=== PATIENT | female | born 1930 | race Caucasian/White ===

== ENCOUNTER 2016-04-26 05:11 | Emergency (ER) | payer MEDICARE, MEDICAID ==
--- NOTE | 2016-04-26 07:08 | ER Document Report ---
ED General - General Chief Complaint: Arm Pain Stated Complaint: RIGHT ARM PAIN Time seen by provider: 06:45 Mode of Arrival: Medic Information source: Patient, Emergency Med Personnel Notes: 85-year-old female from assisted living with report from EMS personnel of right arm pain. By their report patient also has history of dementia. This examiner she has no complaints now. Patient reports she had some right chest pain 15 minutes prior to examination by this physician. She could not further characterize it or say how long it lasted. She denies fever, chills, nausea, vomiting, cough, shortness of breath, abdominal pain, back pain, or pain elsewhere. Note given her history of dementia think her history is unreliable. Physical Exam: General: Alert, appears well. HEENT: Normocephalic. Atraumatic. PERRLA. Extraocular movements intact. Oropharynx clear. Neck: Supple. Non-tender. Respiratory: No respiratory distress. Clear and equal breath sounds bilaterally. Chest nontender to palpation Cardiovascular: Regular rate and rhythm. Abdominal: Normal Inspection. Soft, non-tender. No distension. Normal Bowel Sounds. Back: Non-tender. No deformity or step off. Extremities: Moves all four extremities. 2+ pulses all extremities no edema no Homans sign bilaterally Good range of motion all joints without apparent discomfort. All extremities nontender to palpation Neurological: Oriented person and place. Spot Cleaner strength 5 out of 5 equal both upper extremities motor function 5 out of 5 equal both lower extremities no cranial nerve deficits appreciated Psychological: Normal affect. Normal Mood. Skin: Warm. Dry. Normal color. TRAVEL OUTSIDE OF THE [place] IN LAST 30 DAYS: No - Related Data Allergies/Adverse Reactions: codeine [Codeine] Allergy (Verified 04/26/16 08:13) lactose [Lactose] Allergy (Verified 04/26/16 08:13) nitrofurantoin macrocrystalline [From Macrodantin] Allergy (Verified 04/26/16 08 :13) Tetanus Vaccines and Toxoid [Tetanus] Allergy (Verified 04/26/16 08:13) Past Medical History - General Cannot obtain history due to: Dementia - Social History Smoking Status: Unknown if Ever Smoked Cigarette use (# per day): No Chew tobacco use (# tins/day): No Frequency of alcohol use: None Drug Abuse: None Family History: Other - Unable to obtain due to dementia - Past Medical History Cardiac Medical History: Reports: Hx Hypercholesterolemia Pulmonary Medical History: Denies: Hx Tuberculosis Psychiatric Medical History: Reports: Hx Depression Past Surgical History: Reports: Hx Hysterectomy - Immunizations Hx Diphtheria, Pertussis, Tetanus Vaccination: Yes Review of Systems - Review of Systems -: Yes ROS unobtainable due to patient's medical condition Physical Exam - Vital signs Vitals: Resp Pulse Ox 14 97 04/26/16 07:31 04/26/16 07:31 Course - Re-evaluation Re-evalutation: 04/26/16 09:59 Patient has remained asymptomatic during her stay in the emergency department. I do not find documentation of atrial flutter in her old records. I discussed case with patient's primary care physician Dr. Hong who also doesn't recall history of atrial flutter. The patient is considerable fall risk due to her dementia I did not believe that anticoagulation candidate. As she is not symptomatic and is rate controlled given her dementia and advanced age I think outpatient workup is reasonable. Dr. Hong asked that I discuss this with cardiology and I discussed it with Dr. Palacios on-call for cardiology. He is discussed case with patient's primary care physician as well and we are in agreement that this can be worked up as an outpatient. Patient will be started on baby aspirin a day - Vital Signs Vital signs: Temp Pulse Resp BP Pulse Ox 97.4 F 16 128/55 H 98 04/26/16 08:09 04/26/16 09:01 04/26/16 09:01 04/26/16 09:01 - Laboratory Result Diagrams: 04/26/16 07:05 04/26/16 07:05 Laboratory results interpreted by me: 04/26/16 04/26/16 07:05 07:05 MCV 99 H RDW 15.8 H Monocytes % 1.3 L Total Protein 5.9 L Albumin 3.3 L - Diagnostic Test Radiology reviewed: Image reviewed, Reports reviewed - EKG Interpretation by Me Additional EKG results interpreted by me: 04/26/16 07:08 EKG reviewed by myself shows atrial flutter ventricular rate 62 no acute changes. Discharge - Discharge Clinical Impression: Atrial flutter Qualifiers: Atrial flutter type: unspecified Qualified Code(s): I48.92 - Unspecified atrial flutter Condition: Stable Disposition: HOME-ASSISTED LIVING Additional Instructions: Atrial Fibrillation Atrial fibrillation is an abnormal heart rhythm, caused by irregular electrical circuits in the upper heart chamber. It can be caused by heart valve disease, hardening of the arteries, or metabolic problems such as thyroid disease, or may occur without a clear cause. Atrial fibrillation may occur only occasionally, or may be chronic. Atrial fibrillation often results in a very fast heart rate, with palpitations, lightheadedness, and shortness of breath. Treatment is to slow the abnormally fast rate, and to convert the rhythm back to normal, if possible. Many patients stay in atrial fibrillation for years without symptoms or complications. Your doctor will decide whether you can be converted back to a normal heart rhythm. Contact the doctor or emergency medical system at once if you develop chest pain, shortness of breath, or severe lightheadedness, or if you develop any disturbance of consciousness, problems with speech, or localized weakness. Take aspirin 81 mg a day Prescriptions: Aspirin [Aspirin 81 mg Chewable Tablet] 81 mg PO DAILY #30 tab.chew Referrals: CONNIE HONG MD [ACTIVE STAFF] - Follow up in 3-5 days LAVINIA PALACIOS MD [ACTIVE STAFF] - Follow up in 3-5 days
[2016-04-26 07:15] LABS: ABSOLUTE EOSINOPHILS # (AUTO) 0.1 10^3/uL (0.0-0.6); ABSOLUTE MONOCYTES (AUTO) 0.1 10^3/uL (0.1-1.4); ABSOLUTE NEUT (AUTO) 2.6 10^3/uL (1.7-8.2); BASOPHILS % (AUTO) 0.5 % (0-2); EOSINOPHILS % (AUTO) 1.6 % (0-6); HEMATOCRIT 38.2 % (36.0-47.0); HEMOGLOBIN 12.4 g/dL (12.0-15.5); LYMPHOCYTES % (AUTO) 42.4 % (13-45); MEAN CORPUSCULAR HGB CONC 32.4 g/dL (32.0-36.0); MEAN CORPUSCULAR VOLUME 99 fl (80-97); MONOCYTES % (AUTO) 1.3 % (3-13); RED BLOOD COUNT 3.87 10^6/uL (3.72-5.28); RED CELL DISTRIBUTION WIDTH 15.8 % (11.5-14.0); SEGMENTED NEUTROPHILS % (AUTO) 54.2 % (42-78); WHITE BLOOD COUNT 4.8 10^3/uL (4.0-10.5)
[2016-04-26 07:28] LABS: ALANINE AMINOTRANSFERASE 21 U/L (9-52); ALBUMIN 3.3 g/dL (3.5-5.0); ALKALINE PHOSPHATASE 68 U/L (38-126); ANION GAP 9 (5-19); ASPARTATE AMINO TRANSFERASE 19 U/L (14-36); BILIRUBIN,TOTAL 0.4 mg/dL (0.2-1.3); BLOOD UREA NITROGEN 14 mg/dL (7-20); CARBON DIOXIDE 27 mmol/L (22-30); CHLORIDE 103 mmol/L (98-107); CREATININE RESULT 0.68 mg/dL (0.52-1.25); GLUCOSE 102 mg/dL (75-110); POTASSIUM 4.7 mmol/L (3.6-5.0); SODIUM 139.4 mmol/L (137-145); TOTAL PROTEIN 5.9 g/dL (6.3-8.2)
--- NOTE | 2016-04-26 07:58 | EKG REPORT ---
SEVERITY:- ABNORMAL ECG - A-FLUTTER W/ PREDOM 4:1 AV BLOCK, A-RATE 245 LEFT AXIS DEVIATION ABNRM R PROG, CONSIDER ASMI OR LEAD PLACEMENT : Confirmed by: Wesley Alfaro MD 26-Apr-2016 07:58:02
[2016-04-26 09:06] VITALS: BP 128/55
[2016-04-26] MEDS ORDERED: ASPIRIN 81 MG TABLET, ENT COATED PO ONE (10:01)
== END 2016-04-26 12:25 | disposition home health service (06) ==
LOC: ER 05:11
DX: I48.92 Unspecified atrial flutter (principal); M79.601 Pain in right arm; F03.90 Unspecified dementia, unspecified severity, without behavioral disturbance, psychotic disturbance, mood disturbance, and anxiety; E78.00 Pure hypercholesterolemia, unspecified; Z90.710 Acquired absence of both cervix and uterus; Z88.6 Allergy status to analgesic agent; Z88.7 Allergy status to serum and vaccine
CPT/HCPCS: 93005; 99284; 36415; 83735; 85025; 80053; 71010; 93010; A9270

== ENCOUNTER 2016-05-02 16:21 | Inpatient (IN) | payer MEDICARE, MEDICAID ==
--- NOTE | 2016-05-02 17:02 | ER Document Report ---
ED Respiratory Problem <LINDA CORREIA - Last Filed: 05/02/16 21:20> - General Cannot obtain history due to: Dementia TRAVEL OUTSIDE OF THE [place] IN LAST 30 DAYS: No - HPI Patient complains to provider of: Cough, Short of breath Onset: Last week Duration: Worse/persistent Short of Breath: Mild Cough: Nonproductive Recently seen / treated by doctor: Yes <MIGUEL ANGEL GRIFFITH - Last Filed: 05/02/16 21:59> - General Chief Complaint: Cough Stated Complaint: GENERAL WEAKNESS Notes: Patient is an 85 year old female from assisted living that presents to the emergency department today with complaints of a cough and nasal congestion x1 week. Patient was seen here on 04/26/16 and was found to have Atrial Flutter which was a new diagnosis. Patient was not started on anticoagulation therapy due to being a fall risk. EMS reports a room air oxygen saturation of 88%, on the patient's room air oxygen saturation was 98% on room air. History is limited secondary to the patient's dementia. (MIGUEL ANGEL GRIFFITH) - Related Data Allergies/Adverse Reactions: codeine [Codeine] Allergy (Verified 04/26/16 08:13) lactose [Lactose] Allergy (Verified 04/26/16 08:13) nitrofurantoin macrocrystalline [From Macrodantin] Allergy (Verified 04/26/16 08 :13) Tetanus Vaccines and Toxoid [Tetanus] Allergy (Verified 04/26/16 08:13) Past Medical History - Social History Smoking Status: Former Smoker Cigarette use (# per day): No - quit in 1968 <LINDA CORREIA - Last Filed: 05/02/16 21:20> - Social History Smoking Status: Former Smoker Cigarette use (# per day): No Family History: Other - Unable to obtain due to dementia - Past Medical History Cardiac Medical History: Reports: Hx Hypercholesterolemia Psychiatric Medical History: Reports: Hx Depression Past Surgical History: Reports: Hx Hysterectomy - Immunizations Hx Diphtheria, Pertussis, Tetanus Vaccination: Yes <MIGUEL ANGEL GRIFFITH - Last Filed: 05/02/16 21:59> Review of Systems - Review of Systems -: Yes ROS unobtainable due to patient's medical condition - limited secondary to dementia EENT: See HPI, Nose congestion Respiratory: See HPI, Cough, Short of breath -: Yes All other systems reviewed and negative <MIGUEL ANGEL GRIFFITH - Last Filed: 05/02/16 21:59> Physical Exam - General General appearance: Appears well In distress: Mild - HEENT Head: Normocephalic, Atraumatic Eyes: Normal Extraocular movements intact: Yes - Respiratory Respiratory status: No respiratory distress Chest status: Nontender Breath sounds: Rhonchi, Wheezing - Cardiovascular Rhythm: Irregularly irregular - atrial flutter - Abdominal Inspection: Normal Distension: No distension Bowel sounds: Normal - Extremities General upper extremity: Normal inspection, Nontender. No: Edema, Normal ROM General lower extremity: Normal inspection, Nontender. No: Edema, Normal ROM - Neurological Cognition: Other - pleasantly demented at baseline Speech: Normal - Psychological Associated symptoms: Normal affect, Normal mood - Skin Skin Temperature: Warm Skin Moisture: Dry Skin Color: Normal <MIGUEL ANGEL GRIFFITH - Last Filed: 05/02/16 21:59> - Vital signs Vitals: Resp 22 H 05/02/16 16:35 (LINDA CORREIA) (MIGUEL ANGEL GRIFFITH) Course - Laboratory Result Diagrams: 05/02/16 18:17 05/02/16 18:17 - Diagnostic Test Radiology reviewed: Image reviewed, Reports reviewed - Chest x-ray shows mild heart enlargement, interstitial vascular prominence. - EKG Interpretation by Me EKG shows normal: [place], Intervals, ST-T Waves. abnormal: QRS Complexes Rate: Normal - 77 Rhythm: A.Flutter [place]/QRS: LAHB/LAFB - Consults Dr. Sexton Time consulted: 21:15 Consulted provider: will come to ER <LINDA CORREIA - Last Filed: 05/02/16 21:20> - Laboratory Result Diagrams: 05/02/16 18:17 05/02/16 18:17 <MIGUEL ANGEL GRIFFITH - Last Filed: 05/02/16 21:59> - Vital Signs Vital signs: Temp Pulse Resp BP Pulse Ox 98.6 F 64 20 153/54 H 95 05/02/16 21:50 05/02/16 16:36 05/02/16 21:41 05/02/16 21:41 05/02/16 21:41 (LINDA CORREIA) (MIGUE LANGEL GRIFFITH) - Laboratory Laboratory results interpreted by me: 05/02/16 05/02/16 05/02/16 18:17 18:17 18:17 RBC 3.68 L Hgb 11.8 L MCV 100 H RDW 15.7 H Monocytes % 1.0 L Creatine Kinase 449 H CK-MB (CK-2) 6.41 H NT-Pro-B Natriuret Pep 05/02/16 18:17 RBC Hgb MCV RDW Monocytes % Creatine Kinase CK-MB (CK-2) NT-Pro-B Natriuret Pep 821 H (LINDA CORREIA) Discharge - Discharge Admitting Provider: Hospitalist Unit Admitted: Telemetry <LINDA CORREIA - Last Filed: 05/02/16 21:20> <MIGUEL ANGEL GRIFFITH - Last Filed: 05/02/16 21:59> - Discharge Clinical Impression: Bronchitis, acute, with bronchospasm, Hypoxemia, Acute exacerbation of chronic obstructive pulmonary disease Dementia Qualifiers: Dementia type: Alzheimer's disease Alzheimer's disease onset: unspecified onset Dementia behavioral disturbance: without behavioral disturbance Qualified Code(s): G30.9 - Alzheimer's disease, unspecified Atrial flutter Qualifiers: Atrial flutter type: unspecified Qualified Code(s): I48.92 - Unspecified atrial flutter Condition: Stable Disposition: ADMITTED INPATIENT Scribe Attestation: 05/02/16 21:20 I personally performed the services described in the documentation, reviewed and edited the documentation which was dictated to the scribe in my presence, and it accurately records my words and actions. (LINDA CORREIA) Scribe Documentation - Scribe Written by Yo:: Yo Galindo, 1816 05/02/16 acting as scribe for :: Breanne <MIGUEL ANGEL GRIFFITH - Last Filed: 05/02/16 21:59>
[2016-05-02] MEDS ORDERED: IPRATROPIUM/ALBUTEROL 0.5-2.5 MG/3 ML AMPUL NEB ONE (17:41)
[2016-05-02] MEDS ORDERED: ALBUTEROL SULFATE 0.083% NEB 2.5 MG/3 ML AMPUL NEB ONE ×2 (18:17→20:26)
[2016-05-02 18:39] LABS: ABSOLUTE MONOCYTES (AUTO) 0.1 10^3/uL (0.1-1.4); ABSOLUTE NEUT (AUTO) 3.7 10^3/uL (1.7-8.2); BASOPHILS % (AUTO) 0.3 % (0-2); EOSINOPHILS % (AUTO) 0.1 % (0-6); HEMATOCRIT 36.7 % (36.0-47.0); HEMOGLOBIN 11.8 g/dL (12.0-15.5); HGB HCT DIFFERENCE -1.3; LYMPHOCYTES % (AUTO) 34.7 % (13-45); MEAN CORPUSCULAR HEMOGLOBIN 32.2 pg (27.0-33.4); MEAN CORPUSCULAR HGB CONC 32.3 g/dL (32.0-36.0); MEAN CORPUSCULAR VOLUME 100 fl (80-97); RED BLOOD COUNT 3.68 10^6/uL (3.72-5.28); RED CELL DISTRIBUTION WIDTH 15.7 % (11.5-14.0); SEGMENTED NEUTROPHILS % (AUTO) 63.9 % (42-78); WHITE BLOOD COUNT 5.9 10^3/uL (4.0-10.5)
[2016-05-02 19:05] LABS: ALANINE AMINOTRANSFERASE 30 U/L (9-52); ALBUMIN 3.9 g/dL (3.5-5.0); ALKALINE PHOSPHATASE 66 U/L (38-126); ANION GAP 9 (5-19); ASPARTATE AMINO TRANSFERASE 35 U/L (14-36); BILIRUBIN,TOTAL 0.7 mg/dL (0.2-1.3); BLOOD UREA NITROGEN 18 mg/dL (7-20); CALCIUM 9.3 mg/dL (8.4-10.2); CARBON DIOXIDE 27 mmol/L (22-30); CHLORIDE 102 mmol/L (98-107); CREATINE KINASE 449 U/L (30-135); CREATININE RESULT 0.69 mg/dL (0.52-1.25); GLUCOSE 105 mg/dL (75-110); POTASSIUM 3.9 mmol/L (3.6-5.0); SODIUM 137.7 mmol/L (137-145); TOTAL PROTEIN 6.5 g/dL (6.3-8.2)
[2016-05-02 19:13] LABS: CREATINE KINASE MB 6.41 ng/mL (<4.55); TROPONIN I 0.03 ng/mL
[2016-05-02] MEDS ORDERED: METHYLPREDNISOLONE INJ 125 MG/2 ML SDV IV ONE (20:26)
[2016-05-02] MEDS ORDERED: DILTIAZEM HCL 60 MG TABLET PO ONE (21:30)
[2016-05-02] MEDS ORDERED: IPRATROPIUM BROMIDE 0.02% NEB 0.5 MG/2.5 ML AMPUL NEB ONE (23:00)
[2016-05-02] MEDS ORDERED: LEVALBUTEROL HCL NEB 1.25 MG/3 ML AMPUL NEB ONE (23:00)
[2016-05-02] MEDS: LEVOFLOXACIN 750 MG/D5W RTU 750 MG/150 ML RTUPB IV SCH (23:17)
[2016-05-02] MEDS: HEPARIN SOD (PORCINE) 5,000 UNIT/ML 1 ML SYRINGE SUBCUT SCH (23:18)
[2016-05-02 23:47] LABS: CREATINE KINASE MB 4.92 ng/mL (<4.55); TROPONIN I 0.024 ng/mL
--- NOTE | 2016-05-02 23:55 | EKG REPORT ---
SEVERITY:- ABNORMAL ECG - ATRIAL FLUTTER, A-RATE 254 LEFT ANTERIOR FASCICULAR BLOCK : Confirmed by: Isael Fu 02-May-2016 23:54:42
[2016-05-03] MEDS: LEVALBUTEROL HCL NEB 1.25 MG/3 ML AMPUL NEB SCH ×4 (02:13→22:25)
[2016-05-03] MEDS: IPRATROPIUM BROMIDE 0.02% NEB 0.5 MG/2.5 ML AMPUL NEB SCH ×2 (02:13→08:11)
[2016-05-03] MEDS ORDERED: INFLUENZA ADLT QUAD (36MOS+) 2016-17 VAC 0.5 ML SYR IM PRN (02:35)
--- NOTE | 2016-05-03 04:20 | PDOC H&P ---
History of Present Illness Admission Date/PCP: 05/02/16 21:41 CONNIE HONG MD Patient complains of: Shortness of breath History of Present Illness: TEJA SINGH is a 85 year old female residing at assisted living with a past medical history of atrial flutter no chronic anticoagulation secondary to fall risk, dementia, dyslipidemia and hypothyroidism. Who had been her usual state of health until approximately 4 days ago noting shortness of breath and a nonproductive cough, without fever and brought to the emergency room for evaluation. She's found to have a pulse oximetry in the mid 80s and chest x- ray showing mild pulmonology congestion but a BNP of only 800 no leukocytosis. She receives several albuterol Atrovent treatments without significant improvement and referred to the hospitalist for admission. Patient is a poor historian and unable to provide history. Past Medical History Cardiac Medical History: Reports: Atrial Fibrillation, Hyperlipidema Pulmonary Medical History: Denies: Tuberculosis Endocrine Medical History: Reports: Hypothyroidism Psychiatric Medical History: Reports: Dementia, Depression Hematology: Reports: Anemia Denies: Sickle Cell Disease Past Surgical History Past Surgical History: Reports: Hysterectomy Denies: Amputation Social History Information Source: [facility] Records Lives with: [facility] Smoking Status: Former Smoker Frequency of Alcohol Use: None Hx Recreational Drug Use: No Drugs: None Hx Prescription Drug Abuse: No - Advance Directive Resuscitation Status: Full Code Family History Family History: Other - Unable to obtain due to dementia Parental Family History Reviewed: Yes - unable to obtain given dementia Children Family History Reviewed: Yes Sibling(s) Family History Reviewed.: Yes Medication/Allergy Home Medications: Fluticasone Propionate [Flonase] 16 gm NS DAILY 01/02/12 Loratadine [Claritin 10 mg Tablet] 10 mg PO DAILY 01/02/12 Olanzapine [Zyprexa Zydis 5 mg Odt Tablet] 2.5 mg PO DAILY 01/02/12 Dane-3 Acid Ethyl Esters [Lovaza 1 gm Capsule] 2 gm PO BID 01/02/12 Simvastatin 20 mg PO DAILY 01/02/12 Bisacodyl [Dulcolax 5 mg Tablet] 10 mg PO PRN PRN 06/27/13 Cyanocobalamin (Vitamin B-12) [Vitamin B-12] 100 mcg PO DAILY 06/27/13 Duloxetine HCl [Cymbalta 20 mg Capsule.dr] 30 mg PO DAILY 06/27/13 Fiber [Fiber Choice] 1 each PO DAILY 06/27/13 Lactulose [Enulose 10 gm/15 mL Oral Solution] 20 gm PO DAILY 06/27/13 Loperamide HCl/Simethicone [Imodium Advanced Tab Chew] 1 each PO Q1H PRN Lorazepam 0.5 mg PO PRN PRN 06/27/13 Multivitamin [Daily Vitamin] 1 each PO DAILY 06/27/13 Acetaminophen [Tylenol 325 mg Tablet] 650 mg PO Q4 PRN 09/28/13 Beta-Carotene(A) W-C & E/Zn/Cu [Savision Tablet] 2 tab PO DAILY 09/28/13 Bimatoprost [Lumigan] 1 drop OP DAILY 09/28/13 Hydrocortisone Acetate 25 mg PO BID PRN 09/28/13 Pramipexole Di-HCl [Mirapex 0.5 mg Tablet] 0.05 mg PO TID 09/28/13 Timolol Maleate [Timoptic 0.25% Oph Soln 5 ml] 1 drop OD DAILY 09/28/13 Aspirin [Aspirin 81 mg Chewable Tablet] 81 mg PO DAILY #30 tab.chew 04/26/16 Dextran 70/Hypromellose/Pf [Artificial Tears Drops] 1 each OU QID 05/03/16 Levothyroxine Sodium [Synthroid 0.025 mg Tablet] 25 mcg PO DAILY 05/03/16 Memantine HCl [Namenda Xr] 28 mg PO DAILY 05/03/16 Omeprazole Magnesium [Prilosec Otc] 40 mg PO DAILY 05/03/16 Allergies/Adverse Reactions: codeine [Codeine] Allergy (Verified 04/26/16 08:13) lactose [Lactose] Allergy (Verified 04/26/16 08:13) nitrofurantoin macrocrystalline [From Macrodantin] Allergy (Verified 04/26/16 08 :13) Tetanus Vaccines and Toxoid [Tetanus] Allergy (Verified 04/26/16 08:13) Review of Systems Constitutional: ABSENT: chills, fever(s), headache(s), weight gain, weight loss Eyes: ABSENT: visual disturbances Ears: ABSENT: hearing changes Cardiovascular: ABSENT: chest pain, dyspnea on exertion, edema, orthropnea, palpitations Respiratory: ABSENT: cough, hemoptysis Gastrointestinal: ABSENT: abdominal pain, constipation, diarrhea, hematemesis, hematochezia, nausea, vomiting Genitourinary: ABSENT: dysuria, hematuria Musculoskeletal: ABSENT: joint swelling Integumentary: ABSENT: rash, wounds Neurological: ABSENT: abnormal gait, abnormal speech, confusion, dizziness, focal weakness, syncope Psychiatric: ABSENT: anxiety, depression, homidical ideation, suicidal ideation Endocrine: ABSENT: cold intolerance, heat intolerance, polydipsia, polyuria Hematologic/Lymphatic: ABSENT: easy bleeding, easy bruising Physical Exam Vital Signs: Temp Pulse Resp BP Pulse Ox 97.2 F 56 L 19 107/42 L 96 05/03/16 03:58 05/03/16 03:58 05/03/16 03:58 05/03/16 03:58 05/03/16 03:58 Intake & Output 05/01/16 05/02/16 05/03/16 11:59 11:59 11:59 Weight 76.5 kg General appearance: PRESENT: mild distress, well-nourished Head exam: PRESENT: atraumatic, normocephalic Eye exam: PRESENT: conjunctiva pink, EOMI, PERRLA. ABSENT: scleral icterus Ear exam: PRESENT: normal external ear exam Mouth exam: PRESENT: moist, tongue midline Neck exam: ABSENT: carotid bruit, JVD, lymphadenopathy, thyromegaly Respiratory exam: PRESENT: accessory muscle use, crackles, rales, symmetrical, tachypnea. ABSENT: chest wall tenderness, stridor Cardiovascular exam: PRESENT: RRR. ABSENT: diastolic murmur, rubs, systolic murmur Pulses: PRESENT: normal dorsalis pedis pul Vascular exam: PRESENT: normal capillary refill GI/Abdominal exam: PRESENT: normal bowel sounds, soft. ABSENT: distended, guarding, mass, organolmegaly, rebound, tenderness Rectal exam: PRESENT: deferred Extremities exam: PRESENT: full ROM. ABSENT: calf tenderness, clubbing, pedal edema Neurological exam: PRESENT: awake, CN II-XII grossly intact. ABSENT: motor sensory deficit Psychiatric exam: PRESENT: flat affect Skin exam: PRESENT: dry, intact, warm. ABSENT: cyanosis, rash Results Laboratory Results: 05/02/16 05/02/16 22:34 22:34 Creatine Kinase 426 H CK-MB (CK-2) 4.92 H Troponin I 0.024 Impressions: Chest X-Ray 05/02/16 17:41 IMPRESSION: Prominent heart. Some interstitial/vascular prominence. Assessment & Plan - Diagnosis (1) Acute exacerbation of chronic obstructive pulmonary disease Is this a current diagnosis for this admission?: YesPlan: Admission to monitored floor empiric antibiotics albuterol and Atrovent nebulizer ABG if difficult to arouse (2) Atrial flutter Qualifiers: Atrial flutter type: unspecified Qualified Code(s): I48.92 - Unspecified atrial flutter Is this a current diagnosis for this admission?: YesPlan: Rate controlled without meds without anti-coagulation. Continue cardiac monitoring (3) Bronchitis, acute, with bronchospasm Is this a current diagnosis for this admission?: YesPlan: Empiric antibiotics albuterol Atrovent nebulizer, I doubt this alone explains her hypoxia, a d-dimer is elevated a CTA is pending (4) Hypoxemia Plan: Please see above in addition to supplemental oxygen, (5) Dementia Qualifiers: Dementia type: Alzheimer's disease Alzheimer's disease onset: unspecified onset Dementia behavioral disturbance: without behavioral disturbance Qualified Code(s): G30.9 - Alzheimer's disease, unspecified; F02.80 - Dementia in other diseases classified elsewhere without behavioral disturbance Is this a current diagnosis for this admission?: YesPlan: Continue outpatient medication regiment and supportive measures consider re- evaluation of CODE STATUS - Time Time Spent: 50 to 70 Minutes
[2016-05-03] MEDS: HEPARIN SOD (PORCINE) 5,000 UNIT/ML 1 ML SYRINGE SUBCUT SCH ×3 (06:18→21:55)
[2016-05-03 06:30] LABS: ABSOLUTE LYMPHOCYTES (AUTO) 1.2 10^3/uL (0.5-4.7); ABSOLUTE MONOCYTES (AUTO) 0.1 10^3/uL (0.1-1.4); ABSOLUTE NEUT (AUTO) 3.6 10^3/uL (1.7-8.2); BASOPHILS % (AUTO) 0.2 % (0-2); HEMATOCRIT 34.6 % (36.0-47.0); HEMOGLOBIN 11.6 g/dL (12.0-15.5); HGB HCT DIFFERENCE 0.2; LYMPHOCYTES % (AUTO) 23.9 % (13-45); MEAN CORPUSCULAR HEMOGLOBIN 32.6 pg (27.0-33.4); MEAN CORPUSCULAR HGB CONC 33.7 g/dL (32.0-36.0); MEAN CORPUSCULAR VOLUME 97 fl (80-97); MONOCYTES % (AUTO) 1.1 % (3-13); RED BLOOD COUNT 3.57 10^6/uL (3.72-5.28); RED CELL DISTRIBUTION WIDTH 15.5 % (11.5-14.0); SEGMENTED NEUTROPHILS % (AUTO) 74.8 % (42-78); WHITE BLOOD COUNT 4.9 10^3/uL (4.0-10.5)
[2016-05-03 06:50] LABS: ANION GAP 12 (5-19); BLOOD UREA NITROGEN 23 mg/dL (7-20); CARBON DIOXIDE 23 mmol/L (22-30); CHLORIDE 103 mmol/L (98-107); CREATINE KINASE 333 U/L (30-135); CREATININE RESULT 0.77 mg/dL (0.52-1.25); GLUCOSE 183 mg/dL (75-110); SODIUM 138.2 mmol/L (137-145)
[2016-05-03 06:54] LABS: CREATINE KINASE MB 6.03 ng/mL (<4.55); TROPONIN I 0.021 ng/mL
[2016-05-03] MEDS ORDERED: LANSOPRAZOLE 30 MG TAB.RAP.DR PO SCH (08:00)
[2016-05-03] MEDS: ASPIRIN 81 MG TABLET, CHEWABLE PO SCH (09:15)
[2016-05-03] MEDS: LORAZEPAM 0.5 MG TABLET PO SCH ×2 (09:15→17:54)
[2016-05-03] MEDS ORDERED: (PENDING PHARMACY ID) (Simvastatin [Simvastatin] 20 MG) PO SCH (10:00)
[2016-05-03] MEDS ORDERED: (PENDING PHARMACY ID) (Memantine Hcl [Namenda Xr] 28 MG) PO SCH (10:00)
[2016-05-03] MEDS ORDERED: DULOXETINE HCL 20 MG CAPSULE.DR PO SCH (10:00)
[2016-05-03] MEDS ORDERED: MEMANTINE HCL 10 MG TABLET PO SCH (10:00)
[2016-05-03] MEDS ORDERED: LACTULOSE SYRUP 20 GM/30 ML UDCUP PO SCH (10:00)
[2016-05-03] MEDS ORDERED: OLANZAPINE 5 MG TAB.RAPDIS PO SCH (10:00)
[2016-05-03] MEDS ORDERED: (PENDING PHARMACY ID) (Omeprazole Magnesium [Prilosec Otc] 40 MG) PO SCH (10:00)
[2016-05-03] MEDS ORDERED: ACETAMINOPHEN 325 MG TABLET PO PRN (10:26)
[2016-05-03] MEDS ORDERED: HYDROCORTISONE ACETATE 25 MG SUPP.RECT PR PRN (10:26)
[2016-05-03] MEDS: FLUTICASONE NASAL SPRAY 50 MCG/SPRY 120 SPRAY/16 GM NAREB SCH (10:27)
[2016-05-03] MEDS ORDERED: LORATADINE 10 MG TABLET PO SCH (10:30)
[2016-05-03] MEDS ORDERED: LEVOTHYROXINE SODIUM 0.025 MG TABLET PO SCH (10:30)
[2016-05-03] MEDS: DULOXETINE HCL 30 MG CAPSULE.DR PO SCH (10:32)
[2016-05-03] MEDS ORDERED: LEVALBUTEROL HCL NEB 0.63 MG/3 ML AMPUL NEB PRN (10:36)
[2016-05-03] MEDS ORDERED: MEMANTINE HCL 10 MG TABLET PO ONE (12:00)
[2016-05-03] MEDS: BIMATOPROST 0.01% OPH SOLN 2.5 ML/BOTTLE OP SCH (12:53)
[2016-05-03] MEDS: LORATADINE 10 MG TABLET PO SCH (12:54)
[2016-05-03] MEDS: LEVOTHYROXINE SODIUM 0.025 MG TABLET PO SCH (12:54)
[2016-05-03] MEDS: PRAMIPEXOLE DI-HCL 0.5 MG TABLET PO SCH ×2 (13:56→17:53)
--- NOTE | 2016-05-03 13:57 | Physician Advisory Note ---
Physician Advisor ProgressNote .: Pursuant to the plan for [facility], I have reviewed the medical record for this patient. Physician Advisor Statement: Possible documentation opportunities if attending agrees: 1.~ "Medical Necessity": please document explicitly how pt is still different than her baseline, why she still needs to be in hospital for another midnight. Feel free to include points below which you agree apply to this pt. 2.~ "COPD with moderate emphysema", "possible chronic interstitial lung dz" [ per CT] 3. ?? - "Ac Hypoxemic Resp Failure" - Pt had hypoxemia initially for EMS, but whether or not pt having resp distress at that point is not documented in hospital record. ED nurse initial assessment states "Breathing is labored", Effort = "SOB", RR22, but with O2 sat 93% on RA at that time. ED provider stated "mild distress" but "no resp distress" w/her rhonchi/wheezing. H&P states "mild distress", "accessory muscle use", & "tachypnea"; at time of H&P pt 's O2 sats 95-96% on 2L O2 (P/F ratio 286-321, equiv to O2 sat 91+% on RA). Attending, if you feel pt truly had "Ac Hypoxemic Resp Failure" initially, please document this dx with all the findings you used to make your dx. 4. "chronic anemia due to " [nutritional B12 defic? nutritional Fe defic ? chr blood loss Fe defic? nutritional folate defic? ...] As always, if concerned about any unstable VS or abnormal labs,~ please comment on them & note what doing about them, & ~ please document each day the potential clinical problems you are concerned could occur if pt not kept in hospital for tx at this time. Status:~ COPD exacerbation pts typically should come in as Outpt Obs, then next day be changed to Inpt or d/c'd, depending on response. HOwever, this pt already spent 1MN in ED care, & at time of H&P this AM she was expected to require at least a 2nd MN. 85yo with COPD, dementia, A flutter, falls risk presented about 17:00 on with cough/SOB, with initial sat 88% for EMS when her baseline O2 sat is documented to be 98% per ED dr. She was using accessory muscles to breathe, with some distress. She did not have tachycardia. BNP 821, CK 425 (may indicate she had been working hard to breathe for a while prior to arrival), WBC 5.9, Hgb 11.8 (some anemia further increases need for good oxygenation by lungs; Hgb was 12.4 on 04/26/16 & 14's in late 2015). D- dimer 1.99. CXR = mild cardiomegaly, interstitial vasc prominence. CT = mod changes c/w chr ILD or nonspecific pneumonitis, (+)mod emphysema, small BLL fibrosis, mod cardiomegaly, mod mediastinal lymphadenopathy up to 2.1cm. -> ED gave O2, 3 nebs + IV Solumedrol. Attending ordered IV Levaquin, O2, Incentive spirometry, sputum cx, tele monitoring, NOW neb, I/O's, CT-A due to concern about hypoxemia + elevated D- dimer. She has been intermittently tachypneic, as high as RR 25 & 37 on 05/02 PM. On AM, pt bradycardic w/HR 45-55, BP 100/45, RR finally down to 16-19 range. BUN worse, up from 18 to 23, with Cr 0.77, & attending will want to follow up her renal function after CT-A given risk for further kidney decompensation. CK down to 333 but still elevated. Trop I's 0.030, 0.024, 0.021 with no prior levels to compare. This AM, nursing assessment indicates continued wheezes, rhonchi, coarse breath sounds. This AM, attending ordering Xopanex nebs q6h [place] + prn, feels the need for continued hospital care & monitoring for this pt. Nebs & IV steroids can cause further worsening in cardiac function, and this pt has additional risks to cardiac function from hypoxemia. Pt has not yet shown 24 hrs of stable vital signs. Continued tx in inpatient hospital setting medically reasonable & necessary to protect pt's health, safety, & medical condition. Appropriate for Inpt status. Thanks for your help with documentation accuracy/specificity improvement! Lisa Escobar MD [facility] Physician Advisor, Fellow of Hospital Medicine
[2016-05-03] MEDS: POLYVINYL ALCOHOL 1.4% OPH SOLN 15 ML OU SCH ×3 (13:58→21:56)
[2016-05-03] MEDS ORDERED: DEXTRAN OU SCH (14:00)
[2016-05-03] MEDS ORDERED: HYPROMELLOSE OU SCH (14:00)
--- NOTE | 2016-05-03 15:07 | PDOC PROGRESS REPORT ---
Subjective Progress Note for:: 05/03/16 Subjective:: The patient was seen earlier today on rounds. The patient denies any nausea, vomiting, diarrhea, shortness of breath, dizziness, chest pain, heart palpitations, fevers, or chills. I'm uncertain of the reliability of the patient's history. The patient has remained afebrile. Blood pressures have been in a good range. When prompted the patient voices no other concerns at this time. Review of systems: The rest of the review of systems is negative. Physical Exam Vital Signs: Temp Pulse Resp BP Pulse Ox 97.4 F 68 16 121/51 L 94 05/03/16 12:02 05/03/16 13:40 05/03/16 13:40 05/03/16 12:02 05/03/16 13:40 Intake & Output 05/01/16 05/02/16 05/03/16 23:59 23:59 23:59 Intake Total 130 Output Total 0 Balance 130 Weight 76.5 kg General appearance: PRESENT: no acute distress, well-developed, well-nourished Head exam: PRESENT: atraumatic, normocephalic Eye exam: PRESENT: conjunctiva pink, EOMI, PERRLA. ABSENT: scleral icterus Ear exam: PRESENT: normal external ear exam Mouth exam: PRESENT: moist, tongue midline Neck exam: ABSENT: carotid bruit, JVD, lymphadenopathy, thyromegaly Respiratory exam: PRESENT: symmetrical, unlabored, wheezes. ABSENT: rales, rhonchi, tachypnea Cardiovascular exam: PRESENT: RRR. ABSENT: diastolic murmur, rubs, systolic murmur Pulses: PRESENT: normal dorsalis pedis pul Vascular exam: PRESENT: normal capillary refill GI/Abdominal exam: PRESENT: normal bowel sounds, soft. ABSENT: distended, guarding, mass, organolmegaly, rebound, tenderness Rectal exam: PRESENT: deferred Extremities exam: PRESENT: full ROM. ABSENT: calf tenderness, clubbing, pedal edema Neurological exam: PRESENT: alert, awake, oriented to person. ABSENT: motor sensory deficit Psychiatric exam: PRESENT: appropriate affect, normal mood, other - Demented. ABSENT: homicidal ideation, suicidal ideation Skin exam: PRESENT: dry, intact, warm. ABSENT: cyanosis, rash Results Laboratory Results: 05/03/16 05:34 05/03/16 05:34 05/03/16 05/03/16 05:34 05:34 WBC 4.9 RBC 3.57 L Hgb 11.6 L Hct 34.6 L MCV 97 MCH 32.6 MCHC 33.7 RDW 15.5 H Plt Count 185 Seg Neutrophils % 74.8 Lymphocytes % 23.9 Monocytes % 1.1 L Eosinophils % 0.0 Basophils % 0.2 Absolute Neutrophils 3.6 Absolute Lymphocytes 1.2 Absolute Monocytes 0.1 Absolute Eosinophils 0.0 Absolute Basophils 0.0 Sodium 138.2 Potassium 4.0 Chloride 103 Carbon Dioxide 23 Anion Gap 12 BUN 23 H Creatinine 0.77 Est GFR ( Amer) > 60 Est GFR (Non-Af Amer) > 60 Glucose 183 H Calcium 9.0 05/02/16 05/02/16 05/03/16 22:34 22:34 05:34 Creatine Kinase 426 H 333 H CK-MB (CK-2) 4.92 H Troponin I 0.024 05/03/16 05:34 Creatine Kinase CK-MB (CK-2) 6.03 H Troponin I 0.021 Impressions: Chest X-Ray 05/02/16 17:41 IMPRESSION: Prominent heart. Some interstitial/vascular prominence. Chest/Abdomen CTA 05/03/16 00:00 IMPRESSION: Moderate mediastinal lymphadenopathy and reticulonodular intersitium of the right upper lobe may indicate chronic interstitial lung disease or nonspecific pneumonitis. Recommend contrast CT surveillance in 3 months. Assessment & Plan - Diagnosis (1) Bronchitis, acute, with bronchospasm Is this a current diagnosis for this admission?: YesPlan: Continue nebs and steroids. (2) Acute exacerbation of chronic obstructive pulmonary disease Is this a current diagnosis for this admission?: Yes (3) Atrial flutter Qualifiers: Atrial flutter type: unspecified Qualified Code(s): I48.92 - Unspecified atrial flutter Is this a current diagnosis for this admission?: YesPlan: The patient is not anticoagulated given her fall risk. He has not been anticoagulated throughout this diagnosis. (4) Hypothyroid Is this a current diagnosis for this admission?: Yes (5) Dementia Qualifiers: Dementia type: Alzheimer's disease Alzheimer's disease onset: unspecified onset Dementia behavioral disturbance: without behavioral disturbance Qualified Code(s): G30.9 - Alzheimer's disease, unspecified; F02.80 - Dementia in other diseases classified elsewhere without behavioral disturbance Is this a current diagnosis for this admission?: Yes - Time Time Spent with patient: on this visit including assessment, plan, physical examination, and patient education is 35 minutes. Time Spent with patient: 35 or more minutes Medications reviewed and adjusted accordingly: Yes Anticipated discharge: Other - Assisted living Within: within 48 hours Disposition: The patient is a full code. Pending patient's symptomatology and diagnostic findings will reevaluate in the a.m.
[2016-05-03] MEDS: OMEGA-3 ACID ETHYL ESTERS 1 GM CAPSULE PO SCH (17:54)
[2016-05-03] MEDS: LEVOFLOXACIN 750 MG/D5W RTU 750 MG/150 ML RTUPB IV SCH (21:55)
[2016-05-03] MEDS: MEMANTINE HCL 10 MG TABLET PO SCH (21:56)
[2016-05-03] MEDS ORDERED: SIMVASTATIN 10 MG TABLET PO SCH (22:00)
[2016-05-04] MEDS: HEPARIN SOD (PORCINE) 5,000 UNIT/ML 1 ML SYRINGE SUBCUT SCH ×2 (06:52→13:40)
[2016-05-04] MEDS: LEVALBUTEROL HCL NEB 1.25 MG/3 ML AMPUL NEB SCH ×2 (08:40→14:23)
[2016-05-04] MEDS ORDERED: BISACODYL 5 MG TABEC PO PRN (09:02)
[2016-05-04] MEDS ORDERED: LACTULOSE SYRUP 20 GM/30 ML UDCUP PO SCH (10:00)
[2016-05-04] MEDS ORDERED: CYANOCOBALAMIN (VITAMIN B-12) 1,000 MCG TABLET PO SCH (10:00)
[2016-05-04] MEDS ORDERED: (PENDING PHARMACY ID) (Memantine Hcl [Namenda Xr] 28 MG) PO SCH (10:00)
[2016-05-04] MEDS ORDERED: [UNRECOGNIZED DRUG - MIXTURE] PO SCH (10:00)
[2016-05-04] MEDS ORDERED: LANSOPRAZOLE 30 MG TAB.RAP.DR PO ONE (10:00)
[2016-05-04] MEDS ORDERED: MULTIVITAMIN TABLET PO SCH ×2 (10:00)
[2016-05-04] MEDS ORDERED: LACTULOSE 20 GM PO SCH (10:00)
[2016-05-04] MEDS ORDERED: (PENDING PHARMACY ID) (Cyanocobalamin (Vitamin B-12) [Vitamin B-12] 100 MCG) PO SCH (10:00)
[2016-05-04] MEDS ORDERED: CALCIUM POLYCARBOPHIL 625 MG PO SCH (10:00)
[2016-05-04] MEDS: OMEGA-3 ACID ETHYL ESTERS 1 GM CAPSULE PO SCH ×2 (10:47→18:27)
[2016-05-04] MEDS: ASPIRIN 81 MG TABLET, CHEWABLE PO SCH (10:47)
[2016-05-04] MEDS: LORAZEPAM 0.5 MG TABLET PO SCH ×2 (10:47→18:27)
[2016-05-04] MEDS: POLYVINYL ALCOHOL 1.4% OPH SOLN 15 ML OU SCH ×3 (10:48→18:27)
[2016-05-04] MEDS: MEMANTINE HCL 10 MG TABLET PO SCH (10:48)
[2016-05-04] MEDS: PRAMIPEXOLE DI-HCL 0.5 MG TABLET PO SCH ×3 (10:48→18:27)
[2016-05-04] MEDS: DULOXETINE HCL 30 MG CAPSULE.DR PO SCH (10:48)
[2016-05-04] MEDS: FLUTICASONE NASAL SPRAY 50 MCG/SPRY 120 SPRAY/16 GM NAREB SCH (10:48)
[2016-05-04] MEDS ORDERED: TIMOLOL MALEATE 0.25% OPH SOLN 5 ML OD SCH (12:00)
[2016-05-04] MEDS: BIMATOPROST 0.01% OPH SOLN 2.5 ML/BOTTLE OP SCH (13:38)
[2016-05-04] MEDS: LEVOTHYROXINE SODIUM 0.025 MG TABLET PO SCH (13:38)
[2016-05-04] MEDS: LORATADINE 10 MG TABLET PO SCH (13:38)
[2016-05-04 16:33] VITALS: BP 122/54
--- NOTE | 2016-05-04 17:04 | PDOC TRANSFER SUMMARY ---
General - Admit/Disc Date/PCP Admission Date/Primary Care Provider: 05/02/16 21:36 CONNIE HONG MD Discharge Date: 05/04/16 - Discharge Diagnosis (1) Bronchitis, acute, with bronchospasm Is this a current diagnosis for this admission?: Yes (2) Acute exacerbation of chronic obstructive pulmonary disease Is this a current diagnosis for this admission?: Yes (3) Atrial flutter Is this a current diagnosis for this admission?: Yes (4) Hypothyroid Is this a current diagnosis for this admission?: Yes (5) Dementia Is this a current diagnosis for this admission?: Yes - Additional Information Resuscitation Status: Full Code Discharge Diet: As Tolerated Discharge Activity: Activity As Tolerated, Supervised Activity Home Medications: Acetaminophen [Tylenol 325 mg Tablet] 650 mg PO Q4HP PRN 05/03/16 Aspirin [Aspirin 81 mg Chewable Tablet] 81 mg PO DAILY 05/03/16 Beta-Carotene(A) W-C & E/Zn/Cu [Savision Tablet] 2 each PO DAILY 05/03/16 Bimatoprost [Lumigan 0.01% Oph Soln 2.5 ml/Bottle] 1 drop OU QHS 05/03/16 Bisacodyl [Dulcolax 5 mg Tablet] 10 mg PO Q12HP PRN 05/03/16 Calcium Polycarbophil [Fibercon 625 mg Tablet] 625 mg PO DAILY 05/03/16 Cyanocobalamin (Vitamin B-12) [Vitamin B-12 1000 mcg Tablet] 1,000 mcg PO DAILY 05/03/16 Duloxetine HCl 30 mg PO DAILY 05/03/16 Fluticasone Propionate [Flonase Nasal [place] 50 Mcg/[place] 16 gm] 1 spray NASL DAILY 05/03/16 Hydrocortisone Acetate [Anusol Hc 25 mg Supp.rect] 25 mg WI Q12HP PRN 05/03/16 Lactulose [Enulose 10 gm/15 mL Oral Solution] 20 gm PO DAILY 05/03/16 Levothyroxine Sodium [Synthroid 0.025 mg Tablet] 0.025 mg PO QAM 05/03/16 Loperamide HCl [Imodium 2 mg Capsule] 4 mg PO Q1HP PRN 05/03/16 Loratadine [Claritin 10 mg Tablet] 10 mg PO DAILY 05/03/16 Memantine HCl [Namenda Xr] 28 mg PO DAILY 05/03/16 Multivitamin [Multivitamins] 1 each PO DAILY 05/03/16 Olanzapine [Zyprexa 2.5 mg Tablet] 2.5 mg PO DAILY 05/03/16 [place]-3 Acid Ethyl Esters [Lovaza 1 gm Capsule] 2 gm PO BID 05/03/16 Omeprazole 40 mg PO DAILY 05/03/16 Polyvinyl Alcohol [Artificial Tears] 1 drop OU QID 05/03/16 Pramipexole Di-HCl [Mirapex 0.5 mg Tablet] 0.5 mg PO TID 05/03/16 Simvastatin [Zocor 20 mg Tablet] 20 mg PO QHS 05/03/16 Timolol Maleate [Timoptic 0.25% Oph Soln 5 ml] 1 drop OU DAILY 05/03/16 Levalbuterol HCl [Xopenex Neb 0.63 mg/3 ml Ampul] 0.63 mg NEB RTQ6HP PRN #30 vial.neb 05/04/16 Levofloxacin [Levaquin 500 mg Tablet] 500 mg PO DAILY #7 tablet 05/04/16 Lorazepam [Ativan 0.5 mg Tablet] 0.5 mg PO Q12HP PRN #10 tablet 05/04/16 History of Present Illness Admission Date/PCP: 05/02/16 21:36 CONNIE HONG MD History of Present Illness: TEJA SINGH is a 85 year old female residing at assisted living with a past medical history of atrial flutter no chronic anticoagulation secondary to fall risk, dementia, dyslipidemia and hypothyroidism. Who had been her usual state of health until approximately 4 days ago noting shortness of breath and a nonproductive cough, without fever and brought to the emergency room for evaluation. She's found to have a pulse oximetry in the mid 80s and chest x- ray showing mild pulmonology congestion but a BNP of only 800 no leukocytosis. She receives several albuterol Atrovent treatments without significant improvement and referred to the hospitalist for admission. Patient is a poor historian and unable to provide history. Hospital Course Hospital Course: The patient was admitted to telemetry. Patient's home medications were resumed. The patient was placed on scheduled nebs as well as PRN nebs, steroids , and supplemental oxygen. The patient's oxygen, steroids, and nebs were titrated and weaned. The patient is back to baseline and able to complete sentences. The patient was seen and evaluated by physical therapy and recommendations were made to continue physical therapy at assisted living. Physical Exam Vital Signs: Temp Pulse Resp BP Pulse Ox 98.1 F 81 16 122/54 L 96 05/04/16 16:26 05/04/16 16:26 05/04/16 16:26 05/04/16 16:26 05/04/16 16:26 Intake & Output 05/02/16 05/03/16 05/04/16 23:59 23:59 23:59 Intake Total 603 980 Output Total 0 Balance 603 980 Weight 76.5 kg 76.3 kg General appearance: PRESENT: no acute distress, well-developed, well-nourished Head exam: PRESENT: atraumatic, normocephalic Eye exam: PRESENT: conjunctiva pink, EOMI, PERRLA. ABSENT: scleral icterus Ear exam: PRESENT: normal external ear exam Mouth exam: PRESENT: moist, tongue midline Neck exam: ABSENT: carotid bruit, JVD, lymphadenopathy, thyromegaly Respiratory exam: PRESENT: symmetrical, unlabored, wheezes. ABSENT: rales, rhonchi, tachypnea Cardiovascular exam: PRESENT: RRR. ABSENT: diastolic murmur, rubs, systolic murmur Pulses: PRESENT: normal dorsalis pedis pul Vascular exam: PRESENT: normal capillary refill GI/Abdominal exam: PRESENT: normal bowel sounds, soft. ABSENT: distended, guarding, mass, organolmegaly, rebound, tenderness Rectal exam: PRESENT: deferred Extremities exam: PRESENT: full ROM. ABSENT: calf tenderness, clubbing, pedal edema Neurological exam: PRESENT: alert, awake, oriented to person. ABSENT: motor sensory deficit Psychiatric exam: PRESENT: appropriate affect, normal mood, other - Demented. ABSENT: homicidal ideation, suicidal ideation Skin exam: PRESENT: dry, intact, warm. ABSENT: cyanosis, rash Results Laboratory Results: Labs- Last Values WBC 4.9 10^3/uL (4.0-10.5) 05/03/16 05:34 RBC 3.57 10^6/uL (3.72-5.28) L 05/03/16 05:34 Hgb 11.6 g/dL (12.0-15.5) L 05/03/16 05:34 Hct 34.6 % (36.0-47.0) L 05/03/16 05:34 MCV 97 fl (80-97) 05/03/16 05:34 MCH 32.6 pg (27.0-33.4) 05/03/16 05:34 MCHC 33.7 g/dL (32.0-36.0) 05/03/16 05:34 RDW 15.5 % (11.5-14.0) H 05/03/16 05:34 Plt Count 185 10^3/uL (150-450) 05/03/16 05:34 Seg Neutrophils % 74.8 % (42-78) 05/03/16 05:34 Lymphocytes % 23.9 % (13-45) 05/03/16 05:34 Monocytes % 1.1 % (3-13) L 05/03/16 05:34 Eosinophils % 0.0 % (0-6) 05/03/16 05:34 Basophils % 0.2 % (0-2) 05/03/16 05:34 Absolute Neutrophils 3.6 10^3/uL (1.7-8.2) 05/03/16 05:34 Absolute Lymphocytes 1.2 10^3/uL (0.5-4.7) 05/03/16 05:34 Absolute Monocytes 0.1 10^3/uL (0.1-1.4) 05/03/16 05:34 Absolute Eosinophils 0.0 10^3/uL (0.0-0.6) 05/03/16 05:34 Absolute Basophils 0.0 10^3/uL (0.0-0.2) 05/03/16 05:34 D-Dimer 1.99 ug/mL (0.00-0.50) H 05/02/16 22:34 Sodium 138.2 mmol/L (137-145) 05/03/16 05:34 Potassium 4.0 mmol/L (3.6-5.0) 05/03/16 05:34 Chloride 103 mmol/L (98-107) 05/03/16 05:34 Carbon Dioxide 23 mmol/L (22-30) 05/03/16 05:34 Anion Gap 12 (5-19) 05/03/16 05:34 BUN 23 mg/dL (7-20) H 05/03/16 05:34 Creatinine 0.77 mg/dL (0.52-1.25) 05/03/16 05:34 Est GFR ( Amer) > 60 (>60) 05/03/16 05:34 Est GFR (Non-Af Amer) > 60 (>60) 05/03/16 05:34 Glucose 183 mg/dL (75-110) H 05/03/16 05:34 Calcium 9.0 mg/dL (8.4-10.2) 05/03/16 05:34 Total Bilirubin 0.7 mg/dL (0.2-1.3) 05/02/16 18:17 Direct Bilirubin 0.0 mg/dL (0.0-0.3) 05/02/16 18:17 AST 35 U/L (14-36) 05/02/16 18:17 ALT 30 U/L (9-52) 05/02/16 18:17 Alkaline Phosphatase 66 U/L (38-126) 05/02/16 18:17 Creatine Kinase 333 U/L (30-135) H 05/03/16 05:34 CK-MB (CK-2) 6.03 ng/mL (<4.55) H 05/03/16 05:34 Troponin I 0.021 ng/mL 05/03/16 05:34 NT-Pro-B Natriuret Pep 821 pg/mL (<450) H 05/02/16 18:17 Total Protein 6.5 g/dL (6.3-8.2) 05/02/16 18:17 Albumin 3.9 g/dL (3.5-5.0) 05/02/16 18:17 Impressions: Chest X-Ray 05/02/16 17:41 IMPRESSION: Prominent heart. Some interstitial/vascular prominence. Chest/Abdomen CTA 05/03/16 00:00 IMPRESSION: Moderate mediastinal lymphadenopathy and reticulonodular intersitium of the right upper lobe may indicate chronic interstitial lung disease or nonspecific pneumonitis. Recommend contrast CT surveillance in 3 months. Transfer Plan - Disposition Transfer Plan: The patient is a follow with primary care provider within one week for hospital follow-up. - Time Spent with Patient Time spent with patient: Greater than 30 Minutes Qualifiers PATEINT BEING DISCHARGED WITH ANY OF THE FOLLOWING DIAGNOSIS?: No
[2016-05-04] MEDS ORDERED: SIMVASTATIN 10 MG TABLET PO SCH (22:00)
[2016-05-05] MEDS ORDERED: LANSOPRAZOLE 30 MG TAB.RAP.DR PO SCH (06:00)
[2016-05-05] MEDS ORDERED: LEVOFLOXACIN 750 MG TABLET PO SCH (22:00)
== END 2016-05-04 19:30 | DRG 191 ==
LOC: ER 16:21 → EH 21:36 → UNDOADMIN 21:41 → EH 05-03 01:00 → 4S 05-03 01:00
PROVIDERS: ADMIT Internal Medicine; ATTEND Internal Medicine
PROC: 3E0F73Z Introduction of Anti-inflammatory into Respiratory Tract, Via Natural or Artificial Opening (ICD-10-PCS; principal; 2016-05-03)
DX: J44.0 Chronic obstructive pulmonary disease with (acute) lower respiratory infection (principal); I48.92 Unspecified atrial flutter; J20.9 Acute bronchitis, unspecified; J44.1 Chronic obstructive pulmonary disease with (acute) exacerbation; E03.9 Hypothyroidism, unspecified; E78.5 Hyperlipidemia, unspecified; I48.91 Unspecified atrial fibrillation; F32.9 Major depressive disorder, single episode, unspecified; D64.9 Anemia, unspecified; G30.9 Alzheimer's disease, unspecified; F02.80 Dementia in other diseases classified elsewhere, unspecified severity, without behavioral disturbance, psychotic disturbance, mood disturbance, and anxiety; Z79.82 Long term (current) use of aspirin; Z79.899 Other long term (current) drug therapy; Z90.710 Acquired absence of both cervix and uterus; Z87.891 Personal history of nicotine dependence; Z88.7 Allergy status to serum and vaccine; Z88.3 Allergy status to other anti-infective agents; Z88.6 Allergy status to analgesic agent; Z91.011 Allergy to milk products
CPT/HCPCS: 36415; 71010; 71275; 80048; 80053; 82550; 82553; 83880; 84484; 85025; 85379; 87040; 93005; 93010; 94640; 94799; 99285; G8978-GP; G8979-GP; J1644; J1956; J2930; J3490; J7620

== ENCOUNTER 2016-06-25 16:51 | Emergency (ER) | payer MEDICARE, MEDICAID ==
--- NOTE | 2016-06-25 17:08 | ER Document Report ---
ED Fall - General Chief Complaint: Altered Mental Status Stated Complaint: ALTERED MENTAL STATUS Notes: The patient is an 85-year-old female, past medical history Parkinson's, Alzheimer's, presents from [facility] after she had a fall last night. skilled nursing says that she is slightly more confused than her baseline. She takes a baby aspirin daily, but no other blood thinners. The patient is AAO 2 and denies any pain, shortness of breath, chest pain, cough, rash, fevers, abdominal pain, nausea, vomiting, headache, numbness, tingling or weakness. TRAVEL OUTSIDE OF THE [place] IN LAST 30 DAYS: No - Related data Allergies/Adverse Reactions: codeine [Codeine] Allergy (Verified 04/26/16 08:13) lactose [Lactose] Allergy (Verified 04/26/16 08:13) nitrofurantoin macrocrystalline [From Macrodantin] Allergy (Verified 04/26/16 08 :13) Tetanus Vaccines and Toxoid [Tetanus] Allergy (Verified 04/26/16 08:13) Past Medical History - General Information source: Transfer Record, Emergency Med Personnel Cannot obtain history due to: Dementia - Social History Smoking Status: Unknown if Ever Smoked Family History: Other - Unable to obtain due to dementia - Past Medical History Cardiac Medical History: Reports: Hx Atrial Fibrillation, Hx Hypercholesterolemia Pulmonary Medical History: Denies: Hx Tuberculosis Endocrine Medical History: Reports: Hx Hypothyroidism Psychiatric Medical History: Reports: Hx Dementia, Hx Depression Past Surgical History: Reports: Hx Hysterectomy - Immunizations Hx Diphtheria, Pertussis, Tetanus Vaccination: Yes Review of Systems - Review of Systems Notes: REVIEW OF SYSTEMS: CONSTITUTIONAL: -fevers, -chills EENT: -eye pain, -difficulty swallowing, -nasal congestion CARDIOVASCULAR:-chest pain, -syncope. RESPIRATORY: -cough, -SOB GASTROINTESTINAL: -abdominal pain, -nausea, -vomiting, -diarrhea GENITOURINARY: -dysuria, -hematuria MUSCULOSKELETAL: -back pain, -neck pain SKIN: -rash or skin lesions. HEMATOLOGIC: -easy bruising or bleeding. LYMPHATIC: -swollen, enlarged glands. NEUROLOGICAL: -headache, -neurologic symptoms PSYCHIATRIC: -anxiety, -depression. ALL OTHER SYSTEMS REVIEWED AND NEGATIVE. Physical Exam - Vital signs Vitals: Temp Pulse Resp BP Pulse Ox 98.9 F 86 18 120/52 L 94 06/25/16 17:09 03/18/17 17:09 06/25/16 17:09 06/25/16 17:09 06/25/16 17:09 - Notes Notes: PHYSICAL EXAMINATION: GENERAL: Well-appearing and in no acute distress. HEAD: Atraumatic, normocephalic. EYES: Pupils equal round and reactive to light, extraocular movements intact, sclera anicteric, conjunctiva are normal. ENT: nares patent, oropharynx clear without exudates. Moist mucous membranes. NECK: Normal range of motion, supple without lymphadenopathy LUNGS: No respiratory distress. Mild wheezing in left lung. HEART: Regular rate and rhythm without murmurs ABDOMEN: Soft, nontender, normoactive bowel sounds. No guarding, no rebound. No masses appreciated. EXTREMITIES: Normal range of motion, no pitting or edema. No cyanosis. NEUROLOGICAL: Cranial nerves grossly intact. Normal speech, normal gait. Normal sensory, motor, and reflex exams. PSYCH: Normal mood, normal affect. SKIN: Warm, Dry, normal turgor, no rashes or lesions noted. Course - Re-evaluation Re-evalutation: Patient has no signs of infection at this time. Will obtain CT head because unsure if she had her head when she fell. She said that there was no syncopal episode. 06/25/16 18:08 CT Head and CXR do not show any acute abnormalities. Wheezing resolved after one albuterol. No respiratory distress and patient baseline mental status. [facility]. - Vital Signs Vital signs: Temp Pulse Resp BP Pulse Ox 98.9 F 86 18 120/52 L 94 06/25/16 17:09 06/25/16 17:09 06/25/16 17:09 06/25/16 17:09 06/25/16 17:09 - Diagnostic Test Radiology reviewed: Image reviewed, Reports reviewed Radiology results interpreted by me: CT Head: NAD CXR: NAD Discharge - Discharge Clinical Impression: Fall Qualifiers: Encounter type: initial encounter Qualified Code(s): W19.XXXA - Unspecified fall, initial encounter Condition: Good Disposition: [facility] Additional Instructions: The CAT scan of your head and chest x-ray do not show any evidence of bleeds or infection. You may use albuterol every 4 hours as needed for any wheezing. NORMAL EXAM AND WORKUP: At this time, your examination and workup show no significant abnormality. No significant abnormal physical findings were noted. All laboratory, EKG, and imaging (x-ray, CT scans, ultrasound) studies that were ordered show no significant abnormality. Although your examination and all studies that were ordered showed no significant abnormal finding, there are no examinations and no studies that are 100% accurate. There is always the possibility that some abnormality could exist and not be detected with physical examination or within the limits and capabilities of laboratory and other studies. You should return or follow up as you were instructed on your visit today for further evaluation if your symptoms do not resolve. Prescriptions: Albuterol Sulfate [Proair HFA Inhalation Aerosol 8.5 gm MDI] 2 puff IH Q4H PRN # 1 mdi PRN Reason:
[2016-06-25] MEDS ORDERED: IPRATROPIUM/ALBUTEROL 0.5-2.5 MG/3 ML AMPUL NEB ONE (17:14)
[2016-06-25 19:26] VITALS: BP 118/64
== END 2016-06-25 19:23 ==
LOC: ER 16:51
DX: R41.82 Altered mental status, unspecified (principal); G20 Parkinson's disease; G30.9 Alzheimer's disease, unspecified; F02.80 Dementia in other diseases classified elsewhere, unspecified severity, without behavioral disturbance, psychotic disturbance, mood disturbance, and anxiety; W19.XXXA Unspecified fall, initial encounter
CPT/HCPCS: 94640; 99285; 71010; 70450; A9270; J7620

== ENCOUNTER 2016-06-29 17:13 | Emergency (ER) | payer MEDICARE, MEDICAID ==
[~2016-06-29 17:13] MED LIST: ROCURONIUM BROMIDE INJ 50 MG/5 ML VIAL IV ONE
[2016-06-29] MEDS ORDERED: IPRATROPIUM/ALBUTEROL 0.5-2.5 MG/3 ML AMPUL NEB ONE (17:18)
[2016-06-29] MEDS ORDERED: METHYLPREDNISOLONE INJ 125 MG/2 ML SDV IV ONE (17:19)
--- NOTE | 2016-06-29 17:20 | ER Document Report ---
ED General - General Mode of Arrival: Medic Information source: Emergency Med Personnel Cannot obtain history due to: Dementia TRAVEL OUTSIDE OF THE [place] IN LAST 30 DAYS: No - HPI Patient complains to provider of: Altered Mental Status Onset: Other - 06/25/2016 Onset/Duration: Gradual, Persistent Recently seen / treated by doctor: Yes - [facility] ED 06/25/2016 <ALISIA JIMENEZ - Last Filed: 06/29/16 23:28> <ANUSHKA OSORIO - Last Filed: 06/29/16 23:59> - General Chief Complaint: Altered Mental Status Stated Complaint: RESPIRATORY Notes: Patient is an 85-year-old female with history of alzheimer's dementia brought into the emergency department via EMS from [facility] concerned of altered mental status. Patient was seen here on Monday, 2016 for the same concerns. Patient now also has a progressively worsening cough. EMS states that the patient was statting at 100%. EMS also mentions some new facial bruising over her right eye and left cheek. (ALISIA JIMENEZ) - Related Data Allergies/Adverse Reactions: codeine [Codeine] Allergy (Verified 04/26/16 08:13) lactose [Lactose] Allergy (Verified 04/26/16 08:13) nitrofurantoin macrocrystalline [From Macrodantin] Allergy (Verified 04/26/16 08 :13) Tetanus Vaccines and Toxoid [Tetanus] Allergy (Verified 04/26/16 08:13) Past Medical History - General Information source: Emergency Med Personnel, [facility] Records, Outside Facility Records - Social History Smoking Status: Unknown if Ever Smoked Family History: Other - Unable to obtain due to dementia - Past Medical History Cardiac Medical History: Reports: Hx Atrial Fibrillation, Hx Hypercholesterolemia Pulmonary Medical History: Denies: Hx Tuberculosis Endocrine Medical History: Reports: Hx Hypothyroidism Psychiatric Medical History: Reports: Hx Dementia, Hx Depression Past Surgical History: Reports: Hx Hysterectomy - Immunizations Hx Diphtheria, Pertussis, Tetanus Vaccination: Yes <ALISIA JIMENEZ - Last Filed: 06/29/16 23:28> Review of Systems - Review of Systems -: Yes ROS unobtainable due to patient's medical condition <ALISIA JIMENEZ - Last Filed: 06/29/16 23:28> <ANUSHKA OSORIO - Last Filed: 06/29/16 23:59> - Review of Systems Notes: ROS unobtainable due to patient's altered mental status. (ALISIA JIMENEZ) Physical Exam - General General appearance: Alert In distress: Moderate - HEENT Head: Normocephalic, Atraumatic Eyes: Periorbital ecchymosis - Petechiae Pupils: PERRL - Respiratory Respiratory status: Tachypnea Chest status: Pain with cough Breath sounds: Nonproductive cough - Grunting - Cardiovascular Rhythm: Regular Heart sounds: Normal auscultation Murmur: No - Abdominal Inspection: Normal Distension: No distension Tenderness: Nontender - Back Back: Normal - Extremities General upper extremity: Edema - Bilateral General lower extremity: Edema - Bilateral - Neurological Cognition: Confused, Other - Alzheimer's Dementia Orientation: Disoriented to place, Disoriented to time, Disoriented to events [place] Coma Scale Eye Opening: None [place] Coma Scale Verbal: Confused [place] Coma Scale Motor: Withdraws to Pain [place] Coma Scale Total: 9 - Psychological Associated symptoms: Normal affect, Normal mood - Skin Skin Temperature: Warm Skin Moisture: Dry Skin Color: Normal Location of irregularity: Face <TONYALISIA - Last Filed: 06/29/16 23:28> <ANUSHKA OSORIO - Last Filed: 06/29/16 23:59> - Vital signs Vitals: Resp Pulse Ox 30 H 95 06/29/16 17:36 06/29/16 17:36 - Notes Notes: GENERAL: Well-appearing, well-nourished and in mild distress with severe cough. HEAD: Atraumatic, normocephalic. EYES: Pupils equal round and reactive to light, extraocular movements intact, sclera anicteric, Mild periorbital ecchymosis, conjunctiva are normal. ENT: nares patent, oropharynx clear without exudates. Dry mucous membranes. NECK: Normal range of motion, supple without lymphadenopathy LUNGS: Breath sounds coarse to auscultation bilaterally and diminshed, with rales rhonchi and wheezing HEART: Regular rate and rhythm without murmurs ABDOMEN: No Tenderness. Soft, normoactive bowel sounds. No guarding, no rebound. No masses appreciated. EXTREMITIES: Normal range of motion, no pitting or edema. No cyanosis. NEUROLOGICAL: Cranial nerves grossly intact. Oriented X1 but follows commands poorly. PSYCH: Anxious SKIN: Warm, Dry, normal turgor, no rashes or lesions noted. (ANUSHKA OSORIO) Course - Laboratory Result Diagrams: 06/29/16 17:50 06/29/16 19:13 - Consults Dr. Jerry Villar Time consulted: 23:02 <ALISIA JIMENEZ - Last Filed: 06/29/16 23:28> - Laboratory Result Diagrams: 06/29/16 17:50 06/29/16 19:13 <ANUSHKA OSORIO - Last Filed: 06/29/16 23:59> - Re-evaluation Re-evalutation: 06/29/16 20:10 I spoke to the radiologist who noted the patient now has acute and chronic bilateral subdural hematomas measuring 1.7 cm on the right and 1.4 cm on the left with an acute component involving the falx. We are still awaiting emergency contact as well as DO NOT RESUSCITATE form to be faxed from the halfway. 06/29/16 20:41 I just spoke to the family as the DO NOT RESUSCITATE form had not given completed and at this point we will treat her as full code. I spoke with the patient's wahealse-bi-duc, of [place] [facility] and they want to discuss further and are on the way to the hospital. 06/29/16 21:11 I spoke with the patient's son and person. Patient has some point had been a DO NOT RESUSCITATE but she reversed it so he would like to on her wishes with full treatment measures. I spoke with [facility] and I'm awaiting a phone call back about transfer to their facility. 06/29/16 21:[address] Cr, he stated he would not be doing any neurosurgical surgery on this patient and recommended talking to the special agent. I spoke to Dr. Sheikh who did not feel the patient needed the higher level of care. I spoke with Dr. Pop who was not comfortable with concerns of lack of special agent coverage. I then spoke with Dr. Negron who did report that did not have any 24-hour special agent care which this patient will likely need. Furthermore we do not have neurosurgery or neurology available extension worker for consultantation. I will discuss with Kalina again 06/29/16 22:44 Patient is starting to develop increasing rhonchi and worsening respiratory status, we will increase her oxygen level, understanding she probably will require intubation. Further, I spoke with Dr. Sheikh again she advised that they will accept the patient but they do not have capacity now since she is on a wait list. We are waiting on [facility] to contact us back. 06/29/16 23:16 I have already spoken with Dr. Villar at [facility] and he felt no neurosurgical procedures would be beneficial. I spoke with Dr. Mock the special agent there. Currently at this point there are no beds available and the patient be placed on a wait list. 06/29/16 23:59 Patient was intubated for loss of airway protection and increasing secretions and progressive respiratory decline, respiratory failure awaiting helicopter for transport. (ANUSHKA OSORIO) - Vital Signs Vital signs: Temp Pulse Resp BP Pulse Ox 102.3 F H 95 38 H 170/49 H 91 L 06/29/16 22:40 06/29/16 20:40 06/29/16 22:31 06/29/16 22:31 06/29/16 22:31 - Laboratory Laboratory results interpreted by me: 06/29/16 06/29/16 06/29/16 17:50 18:10 19:13 WBC 32.2 H* RBC 2.82 L Hgb 9.6 L Hct 28.1 L MCV 100 H MCH 34.1 H RDW 17.2 H Plt Count 11 L* Seg Neuts % (Manual) 3 L Lymphocytes % (Manual) 89 H Abs Neuts (Manual) 1.0 L Abs Lymphs (Manual) 29.9 H PT 24.3 H APTT 55.7 H D-Dimer > 20.00 H* Carbonic Acid 0.68 L ABG pH 7.53 H ABG pCO2 22.7 L ABG pO2 102.6 H ABG HCO3 18.7 L ABG Total CO2 19.4 L ABG O2 Saturation 98.3 H Sodium Potassium Carbon Dioxide BUN Est GFR (Non-Af Amer) Glucose Total Bilirubin Direct Bilirubin AST Total Protein Urine Protein Urine Blood Urine Ascorbic Acid 06/29/16 06/29/16 19:13 20:30 WBC RBC Hgb Hct MCV MCH RDW Plt Count Seg Neuts % (Manual) Lymphocytes % (Manual) Abs Neuts (Manual) Abs Lymphs (Manual) PT APTT D-Dimer Carbonic Acid ABG pH ABG pCO2 ABG pO2 ABG HCO3 ABG Total CO2 ABG O2 Saturation Sodium 136.5 L Potassium 5.4 H Carbon Dioxide 21 L BUN 32 H Est GFR (Non-Af Amer) 54 L Glucose 160 H Total Bilirubin 1.4 H Direct Bilirubin 0.5 H AST 68 H Total Protein 5.8 L Urine Protein 100 H Urine Blood MODERATE H Urine Ascorbic Acid 40 H - Consults Dr. Jerry Villar Reason for consultation: 06/29/16 23:08 Discussed patient's case with Dr. Villar, a neurosurgeon, who does not recommend nor agree to any neurosurgical interventions. 06/29/16 23:10 (ALISIA JIMENEZ) Procedures - Intubation Orotracheal Time of Intubation: 23:51 Airway evaluation: Normal anatomy Mallampati Classification: Class 2 Medications: Lidocaine - 100 mg, Etomidate - 20 mg, Other - Rocuronium 50mg Intubation method: Orotracheal Blade type: Deyvi Blade size: 4 Equipment used: Glidescope ETT size: 7.5 ETT secured at: Lips ETT secured at (cm): 23 Breath Sounds after Intubation: Equal End tidal CO2 confirmed: Yes Post Intubation Xray: Yes Intubation Complications: No complications <ALISIA JIMENEZ - Last Filed: 06/29/16 23:28> Critical Care Note - Critical Care Note Total time excluding time spent on procedures (mins): 48 <ANUSHKA OSORIO - Last Filed: 06/29/16 23:59> Discharge <ALISIA JIMENEZ - Last Filed: 06/29/16 23:28> <ANUSHKA OSORIO - Last Filed: 06/29/16 23:59> - Discharge Clinical Impression: Subdural hematoma, Sepsis with disseminated intravascular coagulopathy (DIC), Sepsis, Thrombocytopenia associated with AIDS Condition: Critical Scribe Documentation - Scribe Written by Yo:: Alisia Jimenez 06/29/2016 1744 acting as scribe for :: Vladislav <ALISIA JIMENEZ - Last Filed: 06/29/16 23:28>
[2016-06-29 18:20] LABS: HEMATOCRIT 28.1 % (36.0-47.0); HEMOGLOBIN 9.6 g/dL (12.0-15.5); HGB HCT DIFFERENCE 0.7; MEAN CORPUSCULAR HEMOGLOBIN 34.1 pg (27.0-33.4); MEAN CORPUSCULAR HGB CONC 34.2 g/dL (32.0-36.0); MEAN CORPUSCULAR VOLUME 100 fl (80-97); RED BLOOD COUNT 2.82 10^6/uL (3.72-5.28); RED CELL DISTRIBUTION WIDTH 17.2 % (11.5-14.0)
--- NOTE | 2016-06-29 18:29 | EKG REPORT ---
SEVERITY:- ABNORMAL ECG - SINUS RHYTHM FIRST DEGREE AV BLOCK LEFT ANTERIOR FASCICULAR BLOCK : Confirmed by: Wesley Alfaro MD 29-Jun-2016 18:28:51
[2016-06-29 18:40] LABS: BASOPHILS % (MANUAL) 0 % (0-2); EOSINOPHILS % (MANUAL) 0 % (0-6); TOTAL CELLS COUNTED 100
[2016-06-29 18:42] LABS: ANISOCYTOSIS 1+; TOXIC GRANULATION SLIGHT
[2016-06-29 18:44] LABS: ARTERIAL BLOOD BASE EXCESS -3.1 mmol/L; ARTERIAL BLOOD O2 SATURATION 98.3 % (94-98)
[2016-06-29 18:51] LABS: WHITE BLOOD COUNT 32.2 10^3/uL (4.0-10.5)
[2016-06-29 18:52] LABS: LYMPHOCYTES % (MANUAL) 89 % (13-45)
[2016-06-29] MEDS ORDERED: PIPERACILLIN/TAZOBACTAM 4.5 GM VIAL IV ONE (19:02)
[2016-06-29] MEDS ORDERED: VANCOMYCIN HCL INJ 1000 MG VIAL IV ONE (19:02)
[2016-06-29] MEDS ORDERED: NORMAL SALINE 1000 ML 500 ML IV ONE (19:03)
[2016-06-29 20:01] LABS: PROTHROMBIN TIME 24.3 SEC (11.4-15.4)
[2016-06-29 20:02] LABS: PARTIAL THROMBOPLASTIN TIME 55.7 SEC (23.5-35.8)
[2016-06-29 20:06] LABS: ALANINE AMINOTRANSFERASE 34 U/L (9-52); ALBUMIN 3.5 g/dL (3.5-5.0); ALKALINE PHOSPHATASE 80 U/L (38-126); ANION GAP 13 (5-19); ASPARTATE AMINO TRANSFERASE 68 U/L (14-36); BILIRUBIN,DIRECT 0.5 mg/dL (0.0-0.4); BILIRUBIN,TOTAL 1.4 mg/dL (0.2-1.3); BLOOD UREA NITROGEN 32 mg/dL (7-20); CALCIUM 9.3 mg/dL (8.4-10.2); CARBON DIOXIDE 21 mmol/L (22-30); CHLORIDE 103 mmol/L (98-107); CREATININE RESULT 0.97 mg/dL (0.52-1.25); GLUCOSE 160 mg/dL (75-110); POTASSIUM 5.4 mmol/L (3.6-5.0); SODIUM 136.5 mmol/L (137-145); TOTAL PROTEIN 5.8 g/dL (6.3-8.2)
[2016-06-29] MEDS ORDERED: NORMAL SALINE 250 ML IV PRN ×2 (20:12)
[2016-06-29] MEDS ORDERED: ACETAMINOPHEN 650 MG SUPP.RECT PR ONE (21:13)
[2016-06-29 21:24] LABS: D-DIMER > 20.00 ug/mL (0.00-0.50)
[2016-06-29 21:37] LABS: APPEARANCE,URINE CLOUDY; BILIRUBIN,URINE NEGATIVE (NEGATIVE); GLUCOSE, URINE NEGATIVE (NEGATIVE); KETONES,URINE NEGATIVE (NEGATIVE); LEUKOCYTE ESTERASE,URINE NEGATIVE (NEGATIVE); NITRITE,URINE NEGATIVE (NEGATIVE); PROTEIN,URINE 100 mg/dL (NEGATIVE); URINE SPECIFIC GRAVITY 1.017; UROBILINOGEN,URINE NEGATIVE mg/dL (<2.0)
[2016-06-29] MEDS ORDERED: LORAZEPAM INJ 2 MG/1 ML VIAL ONE (22:31)
[2016-06-29] MEDS ORDERED: LORAZEPAM INJ 2 MG/1 ML VIAL IV ONE (23:15)
[2016-06-29] MEDS ORDERED: ETOMIDATE INJ/PF 20 MG/10 ML SDV IV ONE ×2 (23:19→23:54)
[2016-06-29] MEDS ORDERED: LIDOCAINE 2% INJ-PF (100 MG/5 ML) SYRINGE ONE (23:28)
[2016-06-29] MEDS ORDERED: PROPOFOL 100 ML IV ONE (23:54)
[2016-06-29] MEDS ORDERED: ROCURONIUM BROMIDE INJ 50 MG/5 ML VIAL IV ONE (23:55)
[2016-06-29] MEDS ORDERED: PROPOFOL 100 ML IV PRN (23:57)
[2016-06-30] MEDS ORDERED: IBUPROFEN SUSP 100 MG/5 ML ORAL SYRINGE ONE (00:22)
[2016-06-30 01:23] VITALS: BP 145/52
[2016-07-01 08:06] LABS: PATH REVIEW PATHOLOGIST REVIEWED
== END 2016-06-30 00:37 | disposition short-term general hospital (02) ==
LOC: ER 17:13
PROC: 0BH17EZ Insertion of Endotracheal Airway into Trachea, Via Natural or Artificial Opening (ICD-10-PCS; principal; 2016-06-29)
DX: S06.5X0A Traumatic subdural hemorrhage without loss of consciousness, initial encounter (principal); X58.XXXA Exposure to other specified factors, initial encounter; A41.9 Sepsis, unspecified organism; D65 Disseminated intravascular coagulation [defibrination syndrome]; B20 Human immunodeficiency virus [HIV] disease; D69.59 Other secondary thrombocytopenia; J96.90 Respiratory failure, unspecified, unspecified whether with hypoxia or hypercapnia; G30.9 Alzheimer's disease, unspecified; F02.80 Dementia in other diseases classified elsewhere, unspecified severity, without behavioral disturbance, psychotic disturbance, mood disturbance, and anxiety; R07.89 Other chest pain; Z88.5 Allergy status to narcotic agent; Z88.8 Allergy status to other drugs, medicaments and biological substances; Z88.1 Allergy status to other antibiotic agents; Z88.7 Allergy status to serum and vaccine
CPT/HCPCS: 93005; 94640; 99291; 96361; 51702; 96365; 86900; 86901; 36415; 87040; 87086; 36430; 86850; 82803; 85025; 85610; 85730; 87077; 87088; 80053; 81001; 84484; 87186; 85379; 83605; 71010; 70450; 71250; 74176; 93010; 31500; P9035; J3490; J2930; A9270; J2543; J7620